=== PATIENT | female | born 1990 | race Caucasian/White ===

== ENCOUNTER 2016-11-17 09:04 | Emergency (ER) | payer MEDICAID ==
[~2016-11-17 09:04] MED LIST: HYDROCODON-ACE1 EA16 PO; NAPROSYN500 M1 PO; NO HOME MEDICATION; PERCOCET 5-3251 EACH PO
[2016-11-17 10:19] LABS: BASO % 0.2 % (0-2); EOS % 1.1 % (0-7); EOSINOPHIL ABSOLUTE COUNT 0.1 tho/cmm (0.0-0.7); HCT-HEMATOCRIT 35.1 % (34.0-49.0); HGB-HEMOGLOBIN 11.5 gm/dl (12.0-15.5); IMMATURE GRANULOCYTES ABSOLUTE 0.01 tho/cmm (0-0.03); IMMATURE GRANULOCYTES PERCENT 0.2 % (0-0.3); LYMPH % 27.2 % (20-45); LYMPH ABSOLUTE COUNT 1.5 tho/cmm (0.8-4.5); MCH (MEAN CORPUSCULAR HGB) 26.9 pg (28.0-32.0); MCHC MEAN CORPUSCULAR HGB CONC 32.8 % (32.0-36.0); MCV (MEAN CELL VOLUME) 82.2 fl (82.0-96.0); MEAN PLATELET VOLUME 9.4 cmc (9.4-12.4); MONO % 7.5 % (0-12); MONOCYTE ABSOLUTE COUNT 0.4 tho/cmm (0.0-1.2); NEUTROPHIL ABSOLUTE COUNT 3.5 tho/cmm (1.6-8.0); NEUTROPHIL-AUTOMATED 3.5 tho/cmm (1.6-8.0); NEUTROPHILS % 63.8 % (40-80); PLATELET COUNT 201 tho/cmm (150-450); RED BLOOD COUNT 4.27 mil/cmm (4.00-5.20); RED CELL DISTRIBUTION WIDTH 17.8 % (12.4-16.4); WHITE BLOOD COUNT 5.5 tho/cmm (4.0-10.0)
[2016-11-17 10:39] LABS: URINE BILIRUBIN NEGATIVE (NEG); URINE BLOOD NEGATIVE (NEG); URINE GLUCOSE (UA) NEGATIVE (NEG); URINE KETONE NEGATIVE (NEG); URINE LEUKOCYTE ESTERASE POSITIVE (NEG); URINE NITRITE NEGATIVE (NEG); URINE PROTEIN NEGATIVE (NEG); URINE SPECIFIC GRAVITY 1.015 (1.003-1.030)
[2016-11-17 10:41] LABS: URINE APPEARANCE HZ; URINE COLOR YELLOW
[2016-11-17 10:49] LABS: URINE AMORPHOUS 2+; URINE MUCUS 2+; URINE RBC 0-+2 /[HPF] (0-5)
[2016-11-17] MEDS ORDERED: DICLEGIS DR 101 EACH PO (11:50)
[2017-01-29] MEDS ORDERED: CEPHALEXIN PO (15:42)
[2017-01-29] MEDS ORDERED: PERIDEX118 ML SSP (15:42)
[2017-01-29] MEDS ORDERED: DIFLUCAN150 M1 PO (15:42)
[2017-01-29] MEDS ORDERED: PRENATAL 19 TA1 EACH PO (15:43)
== END 2016-11-17 12:00 ==
LOC: EDMED 09:04
PROVIDERS: Physician Assistant
DX: O20.0 Threatened abortion (principal); Z3A.01 Less than 8 weeks gestation of pregnancy